=== PATIENT | male | born 1965 | race Caucasian/White ===

== ENCOUNTER 2019-08-09 15:43 | Emergency (ER) | payer SELFPAY ==
[~2019-08-09] VITALS: Ht 182.9 cm; Wt 95.3 kg
[~2019-08-09 15:43] MED LIST: ATORVASTATIN CA10 MG PO
--- NOTE | 2019-08-09 17:11 | Diagnostic Imaging Report ---
Exams: Head, maxillofacial and cervical spine CTs without IV contrast History: Trauma Comparison studies: None Technique: Axial images were obtained through the head, maxillofacial region and cervical spine. Coronal and sagittal images reconstructed from the axial data. Dose modulation, iterative reconstruction, and/or weight based adjustment of the mA/kV was utilized to reduce the radiation dose to as low as reasonably achievable. Intravenous contrast: None Findings: Scalp: Focal right anterior temporal scalp swelling. No retained hyperdense foreign body. Bones: No fractures, blastic or lytic lesions. Brain sulci: Appropriate for age. Ventricles: Normal in size and configuration. No hydrocephalus. Parenchyma: Normal no densities. No masses, acute hemorrhage, acute or chronic vascular insults. Sellar/suprasellar region: No abnormalities Craniocervical junction: Patent foramen magnum. No Chiari one malformation. Maxillofacial CT: Soft tissues: Focal superficial skin thickening with subtle defect in the right medial premaxillary soft soft tissues (axial series 9 image 35). No retained hyperdense foreign body. Bones: No fractures or bony abnormalities. Orbits: No abnormalities.. Paranasal sinuses: Small right maxillary sinus retention cyst and minimal mucosal thickening in the left maxillary sinus. Remaining sinuses are clear. Dentition: Dental caries with multifocal periodontal disease. Cervical spine CT: Atlantoaxial articulation: Intact. Alignment: Normal lordosis. No scoliosis. Cervicomedullary junction: No abnormalities. The foramen magnum is patent. Soft tissues: No gross acute abnormalities. Vertebrae: No fractures, infection or neoplasm. Degenerative changes: Moderately degenerated disc with mixed cystic and cirrhotic degenerative endplate changes at C5-C6. Small disc osteophyte complexes at C5-C6 and C6-C7 result in mild canal stenosis. Multilevel uncovertebral facet arthrosis with moderate left and mild right foraminal stenosis at C5-C6 and mild bilateral foraminal stenosis at C6-C7. Incidental findings: Scattered calcified after cirrhosis with calcified plaque in the carotid bulbs and carotid siphons IMPRESSION: Head CT: 1. Right anterior temporal scalp swelling. No fracture. 2. No acute intracranial abnormalities. Maxillofacial CT: 1. No maxillofacial fracture. 2. Focal right medial premaxillary soft tissue/skin thickening can be correlated with direct visualization to determine if this is posttraumatic other cutaneous lesion. Cervical spine CT: 1. No cervical spine fracture or subluxation. 2. Degenerative changes as described. 3. Ligament, spinal cord and or vascular abnormalities cannot be excluded on the basis of this examination Signed by: Dr. Ron Aguilera M.D. on 08/09/2019 5:09 PM
[2019-08-09] MEDS ORDERED: TETANUS/DIPHTHERIA TOX ADULT 0.5 ML SYR IM ONE (17:15)
== END 2019-08-09 17:57 | disposition home or self-care (01) ==
LOC: ER 15:43
DX: S01.81XA Laceration without foreign body of other part of head, initial encounter (principal); W20.8XXA Other cause of strike by thrown, projected or falling object, initial encounter; Y92.89 Other specified places as the place of occurrence of the external cause
CPT/HCPCS: 70450; 70486; 72125; 90471; 90714; 99282